=== PATIENT | male | born 1945 | race Caucasian/White ===

== ENCOUNTER → 2018-11-13 | Outpatient (CLI) | payer MEDICARE | END | disposition home or self-care (01) | LOC: LABWHC1 11:40 | PROVIDERS: ATTEND Urology | DX: R97.20 Elevated prostate specific antigen [PSA] (principal) | CPT/HCPCS: 36415; 84153 ==

== ENCOUNTER → 2019-11-15 | Outpatient (CLI) | payer MEDICARE | END | disposition home or self-care (01) | LOC: LABWHC1 13:29 | PROVIDERS: ATTEND Urology | DX: R97.20 Elevated prostate specific antigen [PSA] (principal) | CPT/HCPCS: 36415; 84153 ==

== ENCOUNTER 2020-06-13 14:42 | Emergency (ER) | payer MEDICARE ==
[2020-06-13 15:17] VITALS: TEMP 97.7
[2020-06-13 16:08] LABS: Appearance,Urine Clear (Clear); Bacteria,Urine Rare /hpf; Bilirubin,Urine Negative (Negative); Blood,Urine Negative (Negative); Color,Urine Yellow; Glucose,Urine (UA) Negative (Negative); Hyaline Casts,Urine 1 /lpf (0-2); Ketones,Urine 1+ (Negative); Leukocyte Esterase,Urine Negative (Negative); Mucus,Urine Many /hpf; Nitrite,Urine Negative (Negative); PH, Urine 5.5 (5.0-8.0); Protein,Urine 1+ (Negative); RBC,Urine 1 /hpf (0-5); Specific Gravity,Urine 1.031 (1.001-1.035); Squamous Epithelial Cell,Urine <1 /hpf (0-4); Urobilinogen,Urine <2.0 mg/dL (<2.0); WBC,Urine 1 /hpf (0-5)
[2020-06-13 16:18] LABS: Albumin 4.4 g/dL (3.5-5.0); HCT 50.3 % (39.0-53.0); HGB 16.9 gm/dL (13.0-17.5); MCH 29.7 pg (25.0-35.0); MCHC 33.6 g/dL (31.0-37.0); MCV 88.6 fL (80.0-100.0); Mean Platelet Volume 7.9; Platelet Count 244 k/uL (150-450); Potassium 3.4 mmol/L (3.5-5.1); RBC 5.67 m/uL (4.30-5.90); RDW 12.9 % (11.5-15.5); Total Bilirubin 1.3 mg/dL (0.2-1.3); Total Protein 7.4 g/dL (6.3-8.2); WBC 10.7 k/uL (3.8-10.6)
[2020-06-13 16:57] LABS: Band Neutrophils % 14 %; Eosinophils # (M) 0.21 k/uL (0-0.7); Lymphocytes # (M) 0.75 k/uL (1.0-4.8); Metamyelocytes # (M) 0.21 k/uL (0); Metamyelocytes % 2 %; Monocytes # (M) 1.28 k/uL (0-1.0); Neutrophils % (M) 65 %; Nucleated Red Blood Cells 0 /100 WBC (0-0); Total Cells Counted 200
[2020-06-13] MEDS ORDERED: SODIUM CHLORIDE 0.9% 500 ML 500 ML IV ONE (18:09)
--- NOTE | 2020-06-13 18:10 | ED ---
General Adult HPI - General Chief complaint: Abdominal Pain Stated complaint: N/V/D Time Seen by Provider: 06/13/20 18:00 Source: patient, RN notes reviewed, old records reviewed Mode of arrival: ambulatory Limitations: no limitations - History of Present Illness Initial comments: 74-year-old male presenting for evaluation of abdominal pain nausea vomiting and diarrhea. Symptoms have been present for the past 4 days. Patient denies fever but states he's had some chills. His main complaint is vomiting which seems to be given with abdominal pain which is lower abdomen and does progress into the chest prior to vomiting. Symptoms have been ongoing for the past 5 days. He's had several episodes of diarrhea as well. No central radiating chest pain. No history of CAD. He has had both coronavirus vaccines. - Related Data Home Medications Medication Instructions Recorded Confirmed Finasteride [Proscar] 5 mg PO DAILY 06/13/20 06/13/20 Loratadine [Claritin] 10 mg PO DAILY 06/13/20 06/13/20 Ondansetron HCl [Zofran] 4 mg PO BID PRN 06/13/20 06/13/20 Tamsulosin HCl [Flomax] 0.4 mg PO BID 06/13/20 06/13/20 Allergies Allergy/AdvReac Type Severity Reaction Status Date / Time No Known Allergies Allergy Verified 06/13/20 20:02 Review of Systems ROS Statement: Those systems with pertinent positive or pertinent negative responses have been documented in the HPI. ROS Other: All systems not noted in ROS Statement are negative. Past Medical History Past Medical History: Prostate Disorder History of Any Multi-Drug Resistant Organisms: None Reported Past Surgical History: Orthopedic Surgery, Tonsillectomy Additional Past Surgical History / Comment(s): arthroscopic lt knee, nasal frausto rgery Past Anesthesia/Blood Transfusion Reactions: No Reported Reaction Smoking Status: Light tobacco smoker Past Alcohol Use History: Occasional Past Drug Use History: None Reported - Past Family History Mother Family Medical History: No Reported History General Exam Limitations: no limitations General appearance: alert, in no apparent distress Head exam: Present: atraumatic, normocephalic Eye exam: Present: normal appearance ENT exam: Present: mucous membranes dry Neck exam: Present: normal inspection. Absent: tenderness, meningismus Respiratory exam: Present: normal lung sounds bilaterally. Absent: respiratory distress, wheezes, rales Cardiovascular Exam: Present: regular rate, normal rhythm GI/Abdominal exam: Present: soft. Absent: distended, tenderness, guarding, rebound Extremities exam: Present: normal inspection, normal capillary refill. Absent: pedal edema Neurological exam: Present: alert, oriented X3, CN II-XII intact. Absent: motor sensory deficit Psychiatric exam: Present: normal affect, normal mood Skin exam: Present: warm, dry, intact. Absent: cyanosis, diaphoretic Course Vital Signs 06/13/20 06/13/20 15:14 18:53 Temperature 97.7 F Pulse Rate 62 94 Respiratory 20 16 Rate Blood Pressure 119/71 123/81 O2 Sat by Pulse 94 L 96 Oximetry EKG Findings - EKG Comments: EKG Findings:: EKG: Normal sinus rhythm, nonspecific intraventricular block, rate of 88, no ST segment elevation, GA interval 162, QRS duration 138, QTC 476, no old for comparison. Medical Decision Making - Medical Decision Making 74-year-old male with crampy abdominal pain, vomiting and diarrhea. No vomiting today, he had an episode of diarrhea this morning. Workup is initiated, shows a mild leukocytosis 10.7. He has elevated hemoglobin likely secondary to dehydration. He has some minor electrolyte abnormalities likely again secondary to dehydration. No acute kidney injury or renal failure. His urinalysis is positive for 1+ ketones. No other acute findings. CT showing air-fluid levels throughout both the small and large intestine consistent with either ileus versus enteritis, given this history it is more consistent with an enteritis. Patient given some IV hydration. Feeling better on reevaluation. He will follow with his primary care physician. Return parameters are discussed. He will maintain oral hydration. Additionally he did have a abnormal EKG and troponins were ordered which were negative. He will inform his primary care physician of this. No active chest pain. - Lab Data Result diagrams: 06/13/20 15:54 06/13/20 15:54 Lab Results 06/13/20 06/13/20 06/13/20 Range/Units 15:41 15:50 15:54 WBC 10.7 H (3.8-10.6) k/uL RBC 5.67 (4.30-5.90) m/uL Hgb 16.9 (13.0-17.5) gm/dL Hct 50.3 (39.0-53.0) % MCV 88.6 (80.0-100.0) fL MCH 29.7 (25.0-35.0) pg MCHC 33.6 (31.0-37.0) g/dL RDW 12.9 (11.5-15.5) % Plt Count 244 (150-450) k/uL MPV 7.9 Neutrophils % (Manual) 65 % Band Neuts % (Manual) 14 % Lymphocytes % (Manual) 7 % Monocytes % (Manual) 12 % Eosinophils % (Manual) 2 % Metamyelocytes % 2 % Neutrophils # (Manual) 8.40 H (1.3-7.7) k/uL Lymphocytes # (Manual) 0.75 L (1.0-4.8) k/uL Monocytes # (Manual) 1.28 H (0-1.0) k/uL Eosinophils # (Manual) 0.21 (0-0.7) k/uL Metamyelocytes # (Man) 0.21 H (0) k/uL Nucleated RBCs 0 (0-0) /100 WBC Manual Slide Review Performed Sodium (137-145) mmol/L Potassium (3.5-5.1) mmol/L Chloride (98-107) mmol/L Carbon Dioxide (22-30) mmol/L Anion Gap mmol/L BUN (9-20) mg/dL Creatinine (0.66-1.25) mg/dL Est GFR (CKD-EPI)AfAm (>60 ml/min/1.73 sqM) Est GFR (CKD-EPI)NonAf (>60 ml/min/1.73 sqM) Glucose (74-99) mg/dL Calcium (8.4-10.2) mg/dL Total Bilirubin (0.2-1.3) mg/dL AST (17-59) U/L ALT (4-49) U/L Alkaline Phosphatase (38-126) U/L Troponin I <0.012 (0.000-0.034) ng/mL Total Protein (6.3-8.2) g/dL Albumin (3.5-5.0) g/dL Amylase (30-110) U/L Lipase (23-300) U/L Urine Color Yellow Urine Appearance Clear (Clear) Urine pH 5.5 (5.0-8.0) Ur Specific [place] 1.031 (1.001-1.035) Urine Protein 1+ H (Negative) Urine Glucose (UA) Negative (Negative) Urine Ketones 1+ H (Negative) Urine Blood Negative (Negative) Urine Nitrite Negative (Negative) Urine Bilirubin Negative (Negative) Urine Urobilinogen <2.0 (<2.0) mg/dL Ur Leukocyte Esterase Negative (Negative) Urine RBC 1 (0-5) /hpf Urine WBC 1 (0-5) /hpf Ur Squamous Epith Cells <1 (0-4) /hpf Urine Bacteria Rare H (None) /hpf Hyaline Casts 1 (0-2) /lpf Urine Mucus Many H (None) /hpf Coronavirus (PCR) (Not Detectd) 06/13/20 06/13/20 06/13/20 Range/Units 15:54 18:50 18:50 WBC (3.8-10.6) k/uL RBC (4.30-5.90) m/uL Hgb (13.0-17.5) gm/dL Hct (39.0-53.0) % MCV (80.0-100.0) fL MCH (25.0-35.0) pg MCHC (31.0-37.0) g/dL RDW (11.5-15.5) % Plt Count (150-450) k/uL MPV Neutrophils % (Manual) % Band Neuts % (Manual) % Lymphocytes % (Manual) % Monocytes % (Manual) % Eosinophils % (Manual) % Metamyelocytes % % Neutrophils # (Manual) (1.3-7.7) k/uL Lymphocytes # (Manual) (1.0-4.8) k/uL Monocytes # (Manual) (0-1.0) k/uL Eosinophils # (Manual) (0-0.7) k/uL Metamyelocytes # (Man) (0) k/uL Nucleated RBCs (0-0) /100 WBC Manual Slide Review Sodium 135 L (137-145) mmol/L Potassium 3.4 L (3.5-5.1) mmol/L Chloride 95 L (98-107) mmol/L Carbon Dioxide 26 (22-30) mmol/L Anion Gap 14 mmol/L BUN 22 H (9-20) mg/dL Creatinine 0.98 (0.66-1.25) mg/dL Est GFR (CKD-EPI)AfAm 88 (>60 ml/min/1.73 sqM) Est GFR (CKD-EPI)NonAf 76 (>60 ml/min/1.73 sqM) Glucose 128 H (74-99) mg/dL Calcium 9.0 (8.4-10.2) mg/dL Total Bilirubin 1.3 (0.2-1.3) mg/dL AST 28 (17-59) U/L ALT 40 (4-49) U/L Alkaline Phosphatase 82 (38-126) U/L Troponin I <0.012 (0.000-0.034) ng/mL Total Protein 7.4 (6.3-8.2) g/dL Albumin 4.4 (3.5-5.0) g/dL Amylase 37 (30-110) U/L Lipase 61 (23-300) U/L Urine Color Urine Appearance (Clear) Urine pH (5.0-8.0) Ur Specific [place] (1.001-1.035) Urine Protein (Negative) Urine Glucose (UA) (Negative) Urine Ketones (Negative) Urine Blood (Negative) Urine Nitrite (Negative) Urine Bilirubin (Negative) Urine Urobilinogen (<2.0) mg/dL Ur Leukocyte Esterase (Negative) Urine RBC (0-5) /hpf Urine WBC (0-5) /hpf Ur Squamous Epith Cells (0-4) /hpf Urine Bacteria (None) /hpf Hyaline Casts (0-2) /lpf Urine Mucus (None) /hpf Coronavirus (PCR) Not Detected (Not Detectd) Disposition Clinical Impression: Abdominal pain, Nausea vomiting and diarrhea Disposition: HOME SELF-CARE Condition: Good Instructions (If sedation given, give patient instructions): Abdominal Pain (ED), Acute Nausea and Vomiting (ED) Is patient prescribed a controlled substance at d/c from ED?: No Referrals: Allen Hebert MD [Primary Care Provider] - 1-2 days Time of Disposition: 21:24
--- NOTE | 2020-06-13 19:33 | XR ---
EXAMINATION TYPE: XR chest 1V portable DATE OF EXAM: 06/13/2020 COMPARISON: NONE HISTORY: Abdominal pain TECHNIQUE: Single view FINDINGS: There is no heart failure nor confluent pneumonic infiltrate. Costophrenic angles are clear . There is small linear density left lung base. There are no hilar masses. Bony thorax is intact. IMPRESSION: Subsegmental atelectasis left lung base. Normal heart.
--- NOTE | 2020-06-13 19:41 | CT ---
EXAMINATION TYPE: CT abdomen pelvis w con DATE OF EXAM: 06/13/2020 COMPARISON: None HISTORY: Generalized abdominal pain and diarrhea. CT DLP: 1555.4 mGycm Automated exposure control for dose reduction was used. CONTRAST: Performed with IV Contrast, patient injected with 100ml mL of Isovue 300. There is mild linear density at the posterior lung bases consistent with subsegmental atelectasis. He art size is normal. There is no pericardial effusion. There is no pleural effusion. Liver spleen stom ach pancreas appear intact. The bile ducts are not dilated. There is dilated gallbladder that measure s 5.4 cm. The kidneys have normal size. There is no hydronephrosis. There is normal excretion on the delayed im ages. There is bilateral renal parapelvic cysts. There are bilateral renal cortical cysts that measur e up to 5.3 cm. There is no retroperitoneal adenopathy. Ureters are not dilated. Bladder distends smo othly. There is no inguinal hernia. There is no pelvic mass. There are multiple dilated proximal small bowel loops with fluid levels. Small bowel measures up to 4 cm. There are fluid levels in the large bowel down to the rectum. Transition point not identified. T he distal small bowel has normal size. Distal small bowel mostly empty. There are a few sigmoid diver ticula. I see no sign of diverticulitis. There is no mesenteric edema. There is no ascites or free ai r. The lumbar vertebra have normal alignment. Disc spaces are fairly normal. There is no compression fra cture. Facet joints are intact. Bony pelvis is intact. IMPRESSION: Dilated proximal small bowel with fluid levels. No transition point seen. This is more likely related to significant small bowel ileus. Large bowel fluid levels extending to the rectum and also consistent with large bowel ileus. There is some mild colonic diverticulosis without diverticulitis. Dilated gallbladder. Acute cholecystitis is possible.
[2020-06-13 21:37] VITALS: BP 129/65; PULSE 81; RESP 18
== END 2020-06-13 21:44 | disposition home or self-care (01) ==
LOC: EC 14:42
DX: R10.30 Lower abdominal pain, unspecified (principal); R11.2 Nausea with vomiting, unspecified; R19.7 Diarrhea, unspecified; R68.83 Chills (without fever); F17.200 Nicotine dependence, unspecified, uncomplicated; Z20.822 Contact with and (suspected) exposure to COVID-19
CPT/HCPCS: 36415; 93005; 80053; 82150; 83690; 84484; 85025; 81001; 87635; 71045; 74177; 99285; Q9967

== ENCOUNTER → 2020-11-07 | Outpatient (CLI) | payer MEDICARE | END | disposition home or self-care (01) | LOC: LABWHC1 15:30 | PROVIDERS: ATTEND Urology | DX: R97.20 Elevated prostate specific antigen [PSA] (principal) | CPT/HCPCS: 36415; 84153 ==

== ENCOUNTER → 2021-08-08 | Outpatient (CLI) | payer MEDICARE ==
--- NOTE | 2021-08-08 11:23 | XR ---
EXAMINATION TYPE: XR lumbar spine 2 or 3V, XR Hip Bilateral and AP pelvis DATE OF EXAM: 08/08/2021 COMPARISON: CT dated 06/13/2020 INDICATION: Pain down both legs for 2 months. TECHNIQUE: 3 views of the lumbar spine and 5 views of the pelvis and both hips FINDINGS: Preserved lumbar lordosis. Minimal anterolisthesis of L4 over L5, likely degenerative. Mild retrolist hesis of L1 over L2. No definite vertebral body collapse of acute displaced fracture. Degenerative changes of the lower thoracic and lumbar spine with multilevel opposing endplate osteoph ytosis. Slight degenerated L5-S1 disc. Suspected neuroforaminal stenosis at L4-5 and L5-S1 levels. Bi lateral L4-5 and L5-S1 facet osteoarthropathy. Moderate right hip and milder left hip degenerative changes. 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 No definite pelvic bone or hip fracture identified. Left pelvic phleboliths. Arterial atherosclerotic calcifications. Degenerative changes of the inferior aspect of the left sacroiliac j oint. IMPRESSION: Degenerative changes as detailed above. Further MRI assessment can be considered if clinically requir ed.
== END | disposition home or self-care (01) ==
LOC: RADXRMAIN 10:27
PROVIDERS: ATTEND Internal Medicine
DX: M47.816 Spondylosis without myelopathy or radiculopathy, lumbar region (principal); M16.0 Bilateral primary osteoarthritis of hip
CPT/HCPCS: 72100; 73521

== ENCOUNTER → 2021-08-08 | Outpatient (CLI) | payer MEDICARE ==
--- NOTE | 2021-08-08 10:33 | US ---
EXAMINATION TYPE: US venous doppler duplex LE DATE OF EXAM: 08/08/2021 10:23 AM COMPARISON: NONE CLINICAL HISTORY: M79.606 Acute leg pain. Pain. No hx of DVT. Patient does not take blood thinners. SIDE PERFORMED: Bilateral TECHNIQUE: The lower extremity deep venous system is examined utilizing real time linear array sonog viraj with graded compression, doppler sonography and color-flow sonography. VESSELS IMAGED: Common Femoral Vein Deep Femoral Vein Greater Saphenous Vein * Femoral Vein Popliteal Vein Small Saphenous Vein * Proximal Calf Veins (* superficial vessels) Right Leg: No evidence of DVT in veins imaged at this time. Left Leg: No evidence of DVT in veins imaged at this time. IMPRESSION: No evidence of DVT at this time.
== END | disposition home or self-care (01) ==
LOC: RADUSWWP 09:58
PROVIDERS: ATTEND Internal Medicine
DX: M79.606 Pain in leg, unspecified (principal)
CPT/HCPCS: 93970

== ENCOUNTER → 2021-11-13 | Outpatient (CLI) | payer MEDICARE | END | disposition home or self-care (01) | LOC: LABWHC1 13:13 | PROVIDERS: ATTEND Urology | DX: R97.20 Elevated prostate specific antigen [PSA] (principal) | CPT/HCPCS: 36415; 84153 ==

== ENCOUNTER → 2021-12-24 | Outpatient (CLI) | payer MEDICARE ==
[2021-12-24 14:55] LABS: Basophils # (A) 0.07 X 10*3/uL (0.00-0.10); Basophils % (A) 0.9 %; Eosinophils # (A) 0.33 X 10*3/uL (0.04-0.35); HCT 46.8 % (39.6-50.0); HGB 15.6 g/dL (13.0-17.0); Immature Grans, Automated 0.4 %; Lymphocytes # (A) 2.98 X 10*3/uL (0.90-5.00); Lymphocytes % (A) 36.3 %; MCH 30.3 pg (27.0-32.0); MCHC 33.3 g/dL (32.0-37.0); MCV 90.9 fL (80.0-97.0); Mean Platelet Volume 10.3 fL (9.5-12.2); Monocytes # (A) 0.62 X 10*3/uL (0.20-1.00); Monocytes % (A) 7.6 %; NRBC Per 100 WBC 0 /100 WBCS (0.0-0.0); Neutrophils # (A) 4.18 X 10*3/uL (1.80-7.70); Neutrophils % (A) 50.8 %; Platelet Count 293 X 10*3/uL (140-440); RBC 5.15 X 10*6/uL (4.40-5.60); RDW 12.6 % (11.5-14.5); WBC 8.21 X 10*3/uL (4.50-10.00)
[2021-12-24 15:25] LABS: ALT 20 U/L (10-49); AST 20 U/L (14-35); African American GFR (CKD) 88.3 (60.0-200.0); Albumin 4.5 g/dL (3.8-4.9); Albumin/Globulin Ratio 1.56 (1.60-3.17); Alkaline Phosphatase 86 U/L (41-126); BUN/Creat Ratio 11.21 Ratio (12.00-20.00); Blood Urea Nitrogen 10.8 mg/dL (9.0-27.0); Calcium 9.3 mg/dL (8.7-10.3); Carbon Dioxide 25.5 mmol/L (20.0-27.5); Chloride 106 mmol/L (96-109); Chol/HDL Ratio 3.79 Ratio; Globulin 2.9 g/dL (1.6-3.3); Glucose 108 mg/dL (70-110); LDL Cholesterol,Calculated 123.6 mg/dL (0.0-131.0); Non-African American GFR(CKD) 76.2 (60.0-200.0); Potassium 4.5 mmol/L (3.5-5.5); Sodium 141 mmol/L (135-145); Total Protein 7.3 g/dL (6.2-8.2)
== END | disposition home or self-care (01) ==
LOC: LABWHC1 10:02
PROVIDERS: ATTEND Internal Medicine
DX: E78.5 Hyperlipidemia, unspecified (principal)
CPT/HCPCS: 36415; 80053; 80061; 84443; 85025

== ENCOUNTER → 2022-11-11 | Outpatient (CLI) | payer MEDICARE | END | disposition home or self-care (01) | LOC: LABWHC1 12:03 | PROVIDERS: ATTEND Urology | DX: R97.20 Elevated prostate specific antigen [PSA] (principal) | CPT/HCPCS: 36415; 84153 ==

== ENCOUNTER 2023-03-18 09:39 | Day surgery (SDC) | payer MEDICARE ==
[~2023-03-18 09:39] MED LIST: LACTATED RINGERS 1,000 ML IV SCH
[2023-03-18 11:03] VITALS: TEMP 98
[2023-03-18] MEDS ORDERED: PROPOFOL 10 MG/ML 20 ML VIAL IV ONE (11:44)
--- NOTE | 2023-03-18 12:08 | P.PCN ---
Date of Procedure: 03/18/23 Procedure(s) Performed: BRIEF HISTORY: Patient is a 77-year-old pleasant white male scheduled for an elective colonoscopy as a part of evaluation of prior history of colon polyps PROCEDURE PERFORMED: Colonoscopy snare polypectomy. PREOPERATIVE DIAGNOSIS: historyof colon polyps. IV sedation per Anesthesia. PROCEDURE: After informed consent was obtained, the patient, was brought into the endoscopy unit. IV sedation was administered by Anesthesia under continuous monitoring. Digital rectal examination was normal. Initially the Olympus CF-160 flexible video colonoscope was then inserted in the rectum, gradually advanced into the cecum without any difficulty. Careful examination was performed as the scope was gradually being withdrawn. Ileocecal valve and the appendiceal orifice were visualized and appeared normal. Prep was fair.. Mucosa of the cecum normal. In the ascending colon there were 2 polyps measuring 1 cm and 1.5 cm in size both of which were removed by snare polypectomy. Rest of the, ascending colon, transverse colon, descending colon, sigmoid colon, and rectum appeared no rmal. Scattered sigmoid diverticulosis. Retroflexion was performed in the rectum and no lesions were seen. The patient tolerated the procedure well. IMPRESSION: 1 cm and 1.5 cm ascending colon polyp status post polypectomy Scattered sigmoid diverticulosis RECOMMENDATIONS: Findings of this examination were discussed with the patient well as his family. He was advised to follow with the biopsy results. If the biopsy result adenoma he can have a repeat colonoscopy in 3 years..
[2023-03-18 12:15] VITALS: RESP 16
[2023-03-18 13:01] VITALS: BP 101/64; PULSE 64
== END 2023-03-18 13:11 | disposition home or self-care (01) ==
LOC: ORWHC2ENDO 09:39
PROVIDERS: ATTEND Internal Medicine Gastroenterology
DX: Z12.11 Encounter for screening for malignant neoplasm of colon (principal); D12.0 Benign neoplasm of cecum; K57.30 Diverticulosis of large intestine without perforation or abscess without bleeding; E78.5 Hyperlipidemia, unspecified; I25.2 Old myocardial infarction; M19.90 Unspecified osteoarthritis, unspecified site; N42.9 Disorder of prostate, unspecified; Z98.890 Other specified postprocedural states; Z79.899 Other long term (current) drug therapy; Z86.010 Personal history of colon polyps
CPT/HCPCS: 88305; 45385; J2704

== ENCOUNTER → 2023-06-19 | Outpatient (CLI) | payer MEDICARE ==
[~2023-06-19] MED LIST changes: -LACTATED RINGERS 1,000 ML IV SCH; +REGADENOSON 0.4 MG/5 ML SYRINGE IV PRN
--- NOTE | 2023-06-19 12:11 | CA ---
Lexiscan Nuclear Stress Test Report Name: Devante Shipman Exam Date: 06/19/2023 10:04 Exam Location: [facility] Stress Ht (in): 71 Wt (lb): 224 BSA: 2.21 Ordering Phys: Norberto Ball DO Referring Phys: NORBERTO BALL Technologist: KATHLEEN PEREIRA Age: 77 Gender: M : 1945 Procedure CPT: Indications: I44.7 LEFT BUNDLE-BRANCH BLOCK, UNSPECIFIED ICD-10 Codes: Patient History: CHOL, FAMILY HX, TOB Medications: SEE LIST Meds past 24 hrs: Pretest Chest Pain: STRESS TEST Lexiscan Protocol Exercise Duration (min:sec): 01:[address] Depressions (mm): Angina Score: Dalton Score: Resting HR (bpm): 66 Peak HR (bpm): 96 Resting BP (mmHg): 140 / 78 Peak BP (mmHg): 135 / 81 MPHR: 143 Target HR: 122 % MPHR: 67 METS: 1.0 Total Dose: Peak Dose: Atropine: Double Product: 15360 BP Response: Stress Termination: END OF DOSE Stress Symptoms: No chest pain or symptoms Stress Summary: ECG ANALYSIS Resting ECG: Normal sinus rhythm with left bundle branch block Stress ECG: Patient was given intravenous Lexiscan as a protocol did not have chest pain and EKG changes are inconclusive CONCLUSIONS Inconclusive EKG part of the stress test due to left bundle branch block Cardial lead portion of the stress test will be reported separately Dr. Chong Andrea MD (Electronically Signed) Final Date: 19 June 2023 12:10
--- NOTE | 2023-06-20 15:21 | NM ---
EXAMINATION TYPE: NM stress lexiscan cardiolite DATE OF EXAM: 06/19/2023 COMPARISON: NONE HISTORY: Left bundle branch block TECHNIQUE: After the intravenous administration of 9.8 mCi Tc 99m Sestamibi - Cardiolite resting SPE CT images acquired 45 minutes post injection. At peak stress 25.4 mCi Tc 99m Sestamibi - Stress images obtained 34 minutes post injection The patient was stressed with 0.4mg Lexiscan. FINDINGS: There is a large defect of the inferior wall on both rest and stress images. Prior infarct be conside red. This has extension into the septal wall and inferior lateral wall within the midportion. Polar maps correlate with the defect. Ejection fraction remains normal at 59%. Wall motion is symmetr ical. IMPRESSION: 1. Large fixed defect along the inferior wall with extension into the inferior septal wall and inferi or lateral wall may be a large prior infarct.
== END | disposition home or self-care (01) ==
LOC: RADNMMAIN 08:33
PROVIDERS: ATTEND Internal Medicine
DX: I44.7 Left bundle-branch block, unspecified (principal); E78.00 Pure hypercholesterolemia, unspecified
CPT/HCPCS: 93017; 78452; A9500; J2785

== ENCOUNTER → 2023-07-04 | Outpatient (CLI) | payer MEDICARE ==
[2023-07-04 14:27] LABS: HCT 48.6 % (39.6-50.0); HGB 16.1 g/dL (13.0-17.0); MCH 29.5 pg (27.0-32.0); MCHC 33.1 g/dL (32.0-37.0); Mean Platelet Volume 10.3 FL (9.5-12.2); NRBC Per 100 WBC 0 X 10*3/uL (0.00-0.01); Platelet Count 277 X 10*3/uL (140-440); RBC 5.46 X 10*6/uL (4.40-5.60); RDW 12.9 % (11.5-14.5); WBC 8.32 X 10*3/uL (4.50-10.00)
[2023-07-04 15:55] LABS: Blood Urea Nitrogen 13.4 mg/dL (9.0-27.0); Carbon Dioxide 24.3 mmol/L (21.6-31.8); Chloride 102 mmol/L (96-109); Potassium 4.6 mmol/L (3.5-5.5); Sodium 140 mmol/L (135-145)
== END | disposition home or self-care (01) ==
LOC: LABPAT 11:49
PROVIDERS: ATTEND Internal Medicine Interventional Cardiology
DX: Z01.812 Encounter for preprocedural laboratory examination (principal); R94.39 Abnormal result of other cardiovascular function study
CPT/HCPCS: 80051; 82565; 84520; 85027

== ENCOUNTER 2023-07-08 06:11 | Day surgery (SDC) | payer MEDICARE ==
[~2023-07-08 06:11] MED LIST changes: +ALPRAZolam 0.25 MG TAB PO PRN; +ALPRAZolam 0.5 MG TAB PO PRN; +ASPIRIN 325 MG TAB PO STA; +HEPARIN SODIUM,PORCINE (1 ML) 2,500 UNIT in SODIUM CHLORIDE 0.9% 250 ML IRRIGATION PRN; +HEPARIN SODIUM,PORCINE 10,000 UNIT in SODIUM CHLORIDE 0.9% 1,000 ML IRRIGATION PRN; +NITROGLYCERIN SL TABS 0.4 MG TAB SUBLINGUAL PRN; -REGADENOSON 0.4 MG/5 ML SYRINGE IV PRN
[2023-07-08] MEDS: SODIUM CHLORIDE 0.9% 1,000 ML in EMPTY BAG 1 BAG IV SCH (06:54)
[2023-07-08] MEDS ORDERED: HEPARIN SODIUM 1,000 UN/ML (10ML VL) ONE (07:13)
[2023-07-08] MEDS ORDERED: fentaNYL (PF) 50 MCG/ML 2 ML AMP ONE (07:13)
[2023-07-08] MEDS ORDERED: LIDOCAINE 1% INJ 10MG/ML (20 ML MDV) ONE (07:14)
[2023-07-08] MEDS ORDERED: VERAPAMIL 2.5 MG/ML 2 ML AMP ONE (07:14)
[2023-07-08 07:23] VITALS: RESP 18; TEMP 98
[2023-07-08] MEDS: LIDOCAINE 2% (PF) 20 MG/ML 5 ML VIAL SQ ONE (07:49)
[2023-07-08] MEDS: fentaNYL (PF) 50 MCG/1 ML VIAL IVP ONE (07:49)
[2023-07-08] MEDS: HEPARIN SODIUM 1,000 UN/ML (10ML VL) IVP ONE (07:55)
[2023-07-08] MEDS: IOPAMIDOL-370 100ML BTL INTRATHECA ONE (08:05)
[2023-07-08] MEDS ORDERED: RX INFO: IV CONTRAST WAS GIVEN 1 EACH MISC MISCELLANE PRN (08:17)
--- NOTE | 2023-07-08 08:22 | P.CARDCATH ---
Date of Procedure: 07/08/23 Description of Procedure: Cardiac Catheterization: The patient is a 77-year-old male with a known history of hyperlipidemia, was found to have a left bundle branch block. He is scheduled to undergo orthopedic surgery and had an abnormal MPI. Recommendations were made regarding cardiac catheterization, the risks and the complications were discussed with the patient who is in full understanding and agreement. Procedure Description: Patient was brought to can labeler in fasting semi-sedated state after receiving Fentanyl and Benadryl achieiving moderate conscious sedated state. Using Xylocaine Anesthesia and modified Seldinger technique, a 6-[place] sheath was introduced in the right radial artery . Subsequently, selective coronary angiography was performed using a 5-[place] 3.5 bend Tristan catheter. Multiple views of the coronary artery including hemiaxial views were obtained. The 5 [place] pigtail catheter was used to cross the aortic valve and LVEDP was calculated. Following that, catheter and sheath were removed. Hemostasis was obtained with deployment of vascular band . There was no immediate complication. Patient was returned to room in stable condition. Of note, the patient received a total of 5000 units of intravenous heparin as well as intra-arterial verapamil. Findings: Fluoroscopy: Significant calcification of the LAD and to a lesser degree the RCA was noted. Left main: This is a large size vessel, bifurcating into LAD and left circumflex, left main has no obstructive disease LAD: This is a heavily calcified vessel, giving rise to a large diagonal branch in the midsegment. The LAD in the midsegment has 10 to 20% plaque there is a 20% plaque at the takeoff of the diagonal branch, the rest of the vessel has no high-grade stenosis Left circumflex: This is a large nondominant vessel giving rise to 2 large obtuse marginal branch. The left circumflex has no evidence of high-grade stenosis RCA: This is a large dominant vessel, bifurcating distally to PDA and PLV. The mid right coronary artery has 10 to 20% plaque, the right PDA reaches to the inferoapical wall. The rest of the vessel has no high-grade stenosis. Left Ventriculogram: Not performed Hemodynamics: There was no gradient across aortic valve, LVEDP was 20 mmHg Conclusion: 1. Calcified coronary arteries 2. 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 Right dominance 4. Mildly elevated LVEDP Recommendations: I have recommended to continue medical therapy with the aggressive coronary risks modification initiated. The findings and the recommendations were discussed with the patient and the family and they were in full understanding and agreement. Duration of sedation is 14 minutes.
[2023-07-08] MEDS ORDERED: SODIUM CHLORIDE 0.9% 1,000 ML IV SCH (08:30)
[2023-07-08 12:11] VITALS: BP 113/61; PULSE 57
[2023-07-08] MEDS ORDERED: METOPROLOL TARTRATE 25 MG TAB PO SCH (21:00)
[2023-07-08] MEDS ORDERED: TAMSULOSIN 0.4 MG CAP.ER.24H PO SCH (21:00)
[2023-07-09] MEDS ORDERED: FINASTERIDE 5 MG TAB PO SCH (09:00)
[2023-07-09] MEDS ORDERED: ATORVASTATIN 20 MG TAB PO SCH (09:00)
[2023-07-09] MEDS ORDERED: ASPIRIN 81 MG PO SCH (09:00)
== END 2023-07-08 12:12 | disposition home or self-care (01) ==
LOC: CATHCVL 06:11
PROVIDERS: ATTEND Internal Medicine Interventional Cardiology
DX: I44.7 Left bundle-branch block, unspecified (principal); E78.5 Hyperlipidemia, unspecified; F17.210 Nicotine dependence, cigarettes, uncomplicated; Z79.899 Other long term (current) drug therapy
CPT/HCPCS: 93458; C1769 ×2; C1894; J1644; Q9967; J2001; J3010

== ENCOUNTER → 2023-08-01 | Outpatient (CLI) | payer MEDICARE ==
[2023-08-01 11:18] LABS: INR 0.9 (<1.2); Partial Thromboplastin Time 24.1 sec (22.0-30.0); Prothrombin Time 10.2 sec (10.0-12.5)
[2023-08-01 16:00] LABS: ALT 16 U/L (10-49); AST 20 U/L (14-35); Albumin 4.5 g/dL (3.8-4.9); Albumin/Globulin Ratio 1.88 Ratio (1.60-3.17); Alkaline Phosphatase 98 U/L (41-126); BUN/Creat Ratio 18.33 Ratio (12.00-20.00); Blood Urea Nitrogen 16.5 mg/dL (9.0-27.0); Calcium 9.4 mg/dL (8.7-10.3); Carbon Dioxide 22.2 mmol/L (21.6-31.8); Chloride 104 mmol/L (96-109); Globulin 2.4 g/dL (1.6-3.3); Glucose 126 mg/dL (70-110); Potassium 4.6 mmol/L (3.5-5.5); Sodium 139 mmol/L (135-145); Total Bilirubin 0.8 mg/dL (0.3-1.2); Total Protein 6.9 g/dL (6.2-8.2)
[2023-08-01 16:07] LABS: Basophils # (A) 0.08 X 10*3/uL (0.00-0.10); Eosinophils % (A) 3.8 %; HCT 51.4 % (39.6-50.0); HGB 16.6 g/dL (13.0-17.0); Lymphocytes # (A) 2.72 X 10*3/uL (0.90-5.00); Lymphocytes % (A) 34.5 %; MCH 29.5 pg (27.0-32.0); MCHC 32.3 g/dL (32.0-37.0); MCV 91.5 FL (80.0-97.0); Mean Platelet Volume 11.5 FL (9.5-12.2); Monocytes % (A) 7.6 %; NRBC Per 100 WBC 0 X 10*3/uL (0.00-0.01); Neutrophils # (A) 4.17 X 10*3/uL (1.80-7.70); Neutrophils % (A) 52.8 %; Platelet Count 189 X 10*3/uL (140-440); RBC 5.62 X 10*6/uL (4.40-5.60); RBC Morphology Normal (Normal); RDW 12.8 % (11.5-14.5); WBC 7.89 X 10*3/uL (4.50-10.00)
== END | disposition home or self-care (01) ==
LOC: LABPAT 10:29
PROVIDERS: ATTEND Orthopaedic Surgery
DX: Z01.818 Encounter for other preprocedural examination (principal); M16.11 Unilateral primary osteoarthritis, right hip; Z22.322 Carrier or suspected carrier of Methicillin resistant Staphylococcus aureus
CPT/HCPCS: 80053; 85025; 85610; 85730; 86850; 86900; 86901; 87070; 93005

== ENCOUNTER 2023-08-12 09:34 | Day surgery (SDC) | payer MEDICARE ==
[2023-08-07 09:22] VITALS: BMI 31.5
[~2023-08-12 09:34] MED LIST changes: -ALPRAZolam 0.25 MG TAB PO PRN; -ALPRAZolam 0.5 MG TAB PO PRN; -ASPIRIN 325 MG TAB PO STA; -HEPARIN SODIUM,PORCINE (1 ML) 2,500 UNIT in SODIUM CHLORIDE 0.9% 250 ML IRRIGATION PRN; -HEPARIN SODIUM,PORCINE 10,000 UNIT in SODIUM CHLORIDE 0.9% 1,000 ML IRRIGATION PRN; +HYDROcodone/APAP 7.5-325MG 1 EACH TAB PO PRN; +HYDROmorphone 0.5 MG/0.5 ML SYRINGE IVP PRN; +MAGNESIUM HYDROXIDE 2,400 MG/30 ML CUP PO PRN; +NALOXONE 0.4 MG/ML 1 ML VIAL IV PRN; -NITROGLYCERIN SL TABS 0.4 MG TAB SUBLINGUAL PRN; +ONDANSETRON 4 MG/2 ML VIAL IVP PRN; +TRANEXAMIC 1,000 MG/100ML-NACL 1,000 MG in SALINE 1 100ML.BAG IVPB PRN
[2023-08-12] MEDS: fentaNYL (PF) 50 MCG/ML 2 ML AMP IVP ONE (10:27)
[2023-08-12] MEDS: IV FLUID CONTINUATION 1,000 ML IV ONE (10:35)
[2023-08-12] MEDS: DEXAMETHASONE SOD PHOSPHATE 4 MG/ML 1 ML VIAL IV ONE (10:35)
[2023-08-12] MEDS: ONDANSETRON 4 MG/2 ML VIAL IVP ONE (10:35)
[2023-08-12] MEDS: MELOXICAM 7.5 MG TAB PO PRN (10:36)
[2023-08-12] MEDS: MIDAZOLAM 2 MG/2 ML VIAL IV PRN (10:37)
[2023-08-12] MEDS: GABAPENTIN 300 MG CAP PO PRN (10:37)
[2023-08-12] MEDS: ACETAMINOPHEN TAB 500 MG TAB PO PRN (10:37)
--- NOTE | 2023-08-12 10:50 | P.ANPRN ---
Procedure Note - Anesthesia - Nerve Block Performed Right Graham Single Time Out Performed: Yes Date of Procedure: 08/12/23 Procedure Start Time: 10:38 Procedure Stop Time: 10:44 Location of Patient: PreOp Indication: Acute Post-Operative Pain, Requested by Surgeon Sedation Type: Sedate with meaningful contact maintained Preparation: Sterile Prep Position: Supine Needle Types: Pajunk Needle Gauge: 21 Ultrasound used to visualize needle placement: Yes Ultrasound used to observe medication spread: Yes Injectate: 0.5% Ropivacaine (see comment for volume) (30 ml + 4 mg Dexametha sone) Blood Aspirated: No Pain Paresthesia on Injection Noted: No Resistance on Injection: Normal Image Stored and Saved: Yes Events: Uneventful and Well Tolerated
[2023-08-12] MEDS ORDERED: PROPOFOL 10 MG/ML 20 ML VIAL IV ONE (11:30)
[2023-08-12] MEDS ORDERED: ePHEDrine 50 MG/ML 1 ML VIAL ONE (11:30)
[2023-08-12] MEDS ORDERED: MIDAZOLAM 2 MG/2 ML VIAL ONE (11:30)
[2023-08-12] MEDS ORDERED: fentaNYL (PF) 50 MCG/ML 2 ML AMP ONE (11:30)
[2023-08-12] MEDS ORDERED: ROPIVACAINE 5 MG/ML 30 ML VIAL ONE (11:30)
[2023-08-12] MEDS ORDERED: PHENYLEPHRINE-0.9% NACL SYG 1,000 MCG/10 ML SYRINGE ONE (11:30)
[2023-08-12] MEDS ORDERED: DEXAMETHASONE SOD PHOSPHATE 4 MG/ML 1 ML VIAL ONE (11:30)
[2023-08-12] MEDS ORDERED: TRANEXAMIC 1,000 MG/100ML-NACL PREMIX BAG ONE (11:30)
[2023-08-12] MEDS: ceFAZolin 1,000 MG in SODIUM CHLORIDE 0.9% 1,000 ML IRRIGATION ONE (11:35)
[2023-08-12] MEDS: ROPIVACAINE 5 MG/ML 30 ML VIAL MISCELLANE ONE ×2 (11:48→12:40)
[2023-08-12] MEDS: LACTATED RINGERS 1,000 ML IV ONE (12:11)
--- NOTE | 2023-08-12 12:47 | P.OP ---
Date of Procedure: 08/12/23 Preoperative Diagnosis: Severe osteoarthritis right hip Postoperative Diagnosis: Severe osteoarthritis right hip Procedure(s) Performed: Right total hip arthroplasty with a direct anterior approach Implants: [employer] Polarstem standard size 4 with a collar [employer] R3, 3 hole hemispherical acetabular shell, 56 mm [employer] Reflection 6.5 mm cancellus screw, 20 mm, 25 mm [employer] R3, XLPE 20 acetabular liner [employer] Oxinium femoral head 36 mm, +8 All components were press-fit. The articulation is Oxinium on polyethylene. Anesthesia: spinal Surgeon: Clayton Dukes Chemical Sprayer #1: Nitza Whitfield Estimated Blood Loss (ml): 350 Pathology: none sent Condition: stable Disposition: PACU Indications for Procedure: After failure of conservative treatment we discussed the surgical and n onsurgical treatment options at length. Patient wishes to proceed with a total hip arthroplasty with a direct anterior approach. Complications specific to this procedure were discussed at length, including but not limited to infection, leg length discrepancy, dislocation, nerve injury, and fracture. Covid-19 was also discussed at length with the patient, and they are aware of the current policies and procedures. The patient was given the option of delaying surgery, but they elect to proceed knowing these risks. Patient is aware of all these complications and informed consent was obtained Operative Findings: The operative findings are consistent with severe osteoarthritis of the right hip Description of Procedure: The patient was seen and evaluated in the preoperative area and the consent was reviewed. The operative site was marked with a skin marker. The patient verified the procedure and operative site. A SARAH block was placed by anesthesia in the preoperative area. The patient was then brought to the operating room and given preoperative antibiotics intravenously. 1 g of Tranexamic acid was also given intravenously. A spinal anesthetic was administered by the anesthesia department. The patient was then placed on the [place] table with the bony prominences well-padded. The hip area was then prepped with a ChloraPrep solution and draped in the usual sterile fashion. A universal timeout was then performed, which confirmed the patient's name, surgical site, ALLERGIES, and procedure being performed on the consent. Next the incision site was located at 1 cm distal and 4 cm lateral to the anterior superior iliac spine. The skin and subcutaneous tissues were sharply incised. Incision was carefully dissected down to the fascia overlying the tensor fascia nickolas muscle. This fascia was then incised in line with the muscle fibers. Care was taken to stay laterally in order to avoid injuring the lateral femoral cutaneous nerve. Next, using blunt finger dissection, the tensor fascia nickolas muscle was dissected off its investing fascia. The muscle was then carefully retracted laterally with a cobra retractor over the lateral neck of the femur. Next, the circumflex vessels were identified and cauterized using the Aquamantis device. The anterior hip capsule was then exposed. The capsule was then opened and an inverted T fashion. The retractors were then placed intracapsularly. The retractors were maintained intracapsular throughout the procedure. The proximal femur was then visualized. Fluoroscopic x-rays were then taken in order to evaluate the preoperative leg lengths. A small amount of traction was placed on the leg. The femoral neck was then osteotomized at the appropriate level above the lesser trochanter. A small wedge of bone was then removed from the remaining femoral head. Next, using a corkscrew the femoral head was removed from the acetabulum. On gross visual inspection, the femoral head had complete loss of articular cartilage and multiple periarticular osteophytes. The femoral head was then measured. Attention was then turned to the acetabulum. The acetabulum was exposed and any remaining labrum was excised. Sequential reaming of the acetabulum was performed using fluoroscopic guidance until there was a good bed of bleeding cancellus bone. When the appropriate size was reached, a trial was then placed. The position and fit of the trial was checked with fluoroscopy. The trial was then removed. Then, using fluoroscopic guidance, the final implant was impacted at 20 of anteversion and 40 of abduction, and fully seated in the acetabulum. 2 screws were then placed in the acetabulum. Again fluoroscopy was used to check position of the screws. Next, the liner was then impacted, with a 20 elevated liner located in the anterior superior quadrant. Component locking was confirmed. Attention was then directed to the femur. With the aid of the [place] table, the femur was externally rotated to approximately 130, extended, and adducted under the opposite leg. A side hook was then placed under the proximal femur, and the side hook elevator was used to elevate the proximal femur while releasing the capsule. Retractors were then placed. A capsular release was performed, as well as a release of the conjoined tendon, which afforded excellent visualization of the proximal femur. Next, a box osteotome was used to lateralize the proximal femur. A hand method lasting machine operator was then used to locate the femoral canal. Sequential broaching was then performed with appropriate size which afforded excellent fixation in the proximal femur. A trial was then placed with appropriate head and neck, and the hip was gently reduced with the aid of the [place] table. Fluoroscopy was then used to check position of the components, as well as to evaluate the leg lengths and offset. The leg lengths and offset were measured as closely as possible to ensure stability of the hip. The hip was then gently dislocated and the trials were then removed. Final implants were then impacted and the hip was again reduced. Final fluoroscopic x-rays confirmed that the components were in anatomic position. The leg lengths and offset were measured and were found to coincide with the trial measurements. The hip was also taken through range of motion, and found to be stable. The hip was then copiously irrigated with antibiotic solution with pulsatile lavage. The hip was then irrigated with Irrisept solution. The soft tissues were then injected with a ropivacaine solution. A second dose of 1 g of Tranexamic acid was also given intravenously. The fascia was then closed with 2-0 strata fix suture. The subcutaneous tissue was closed with 3-0 Vicryl. The subcuticular tissue was closed with 3-0 strata fix suture. The skin was then closed with Exofin skin glue. After the glue and dried, and Optifoam silver impregnated dressing was applied. The patient was then transferred to the recovery room in stable condition. The architectural administrative assistant LUCERO Palmer was required due to the complexity of surgery, and the need for skilled surgical scrub technologist for positioning, draping, exposure, retraction, and closure of the wound.
--- NOTE | 2023-08-12 13:01 | XR ---
Intraoperative/procedural fluoroscopic services were provided for total right hip arthroplasty. Total fluoroscopy time is 58 seconds with a total of 3 submitted images to PACS. Total DAP 4.1647 Gycm2. Please see the operative note for further details.
[2023-08-12] MEDS: HYDROmorphone 0.5 MG/0.5 ML SYRINGE IVP PRN (16:23)
[2023-08-12] MEDS: SODIUM CHLORIDE 0.9% 1,000 ML IV SCH (16:39)
--- NOTE | 2023-08-12 17:53 | P.CONS ---
History of Present Illness - Reason for Consult Consult date: 08/12/23 - History of Present Illness Patient is a 77-year-old male with a past medical history of BPH, hyperlipidemia, coronary disease who presents to the hospital for elective right total hip arthroplasty. Medicine has been consulted for medical management. Patient was seen after his surgery. Patient currently denying any acute complaints. ROS: 10 ROS reviewed and are negative except as noted in HPI Physical exam General: [Alert and oriented, well nourished, no acute distress]. Eye: [PERRL, EOMI, normal conjunctiva]. HENT: [Normocephalic, clear tympanic membranes, normal hearing, moist oral mucosa, no scleral icterus, no sinus tenderness]. Neck: [Supple, non-tender, no carotid bruits, no JVD, no lymphadenopathy]. Lungs: [Clear to auscultation and percussion, non-labored respiration]. Heart: [Normal rate, regular rhythm, no murmur, gallop or edema]. Abdomen: [Soft, non-tender, non-distended, normal bowel sounds, no masses]. Musculoskeletal: [Restricted range of motion of the right lower extremity]. Skin: [Bandage on the right hip appears intact and dry]. Neurologic: [Awake, alert, and oriented X3, CN II-XII intact]. Psychiatric: [Cooperative, appropriate mood and affect]. Assessment and plan Coronary disease Patient currently on aspirin 325 mg p.o. twice daily for DVT prophylaxis Will hold off on metoprolol as heart rate is in the 50s Hyperlipidemia Atorvastatin 20 mg p.o. daily BPH Continue with finasteride 5 mg p.o. daily and tamsulosin 0.4 mg p.o. twice daily Right hip osteoarthritis Status post right hip total arthroplasty As per your orthopedic surgery management DVT prophylaxis: Aspirin 325 mg p.o. twice daily Thank you for the consult. Please do not hesitate to call us with any questions. Past Medical History Past Medical History: Hyperlipidemia, Hypertension, Osteoarthritis (OA), Prostate Disorder Additional Past Medical History / Comment(s): hx colon polyps History of Any Multi-Drug Resistant Organisms: None Reported Past Surgical History: Heart Catheterization, Orthopedic Surgery, Prostate Surgery, Tonsillectomy Additional Past Surgical History / Comment(s): arthroscopic lt knee, nasal surgery, colonoscopy, prostate biopsy Past Anesthesia/Blood Transfusion Reactions: Previous Problems w/ Anesthesia Additional Past Anesthesia/Blood Transfusion Reaction / Comm: after prostate biopsies had difficulty urinating & ended up w/catheter Past Psychological History: No Psychological Hx Reported Smoking Status: Former smoker Past Alcohol Use History: Rare Additional Past Alcohol Use History / Comment(s): smokes pipe, has for years- HASN'T SMOKED SINCE 08/04/23 Past Drug Use History: None Reported - Past Family History Mother Family Medical History: No Reported History Additional Family Medical History / Comment(s): angina Father Family Medical History: Diabetes Mellitus Additional Family Medical History / Comment(s): rt bka Brother(s) Family Medical History: Coronary Artery Disease (CAD) Additional Family Medical History / Comment(s): agent orange issues Medications and Allergies Home Medications Medication Instructions Recorded Confirmed Type Finasteride [Proscar] 5 mg PO DAILY 06/13/20 08/07/23 History Tamsulosin HCl [Flomax] 0.4 mg PO BID 06/13/20 08/07/23 History Atorvastatin [Lipitor] 20 mg PO DAILY 03/14/23 08/07/23 History Aspirin 81 mg PO DAILY 07/03/23 08/07/23 History Metoprolol Tartrate 25 mg PO BID 07/03/23 08/07/23 History Aspirin 325 mg PO BID #60 tab 08/12/23 Rx HYDROcodone/APAP 7.5-325MG [[place] 1 - 2 tab PO Q6H PRN #32 tab 08/12/23 Rx 7.5-325] Sennosides [Senokot] 2 tab PO DAILY PRN #60 tablet 08/12/23 Rx Allergies Allergy/AdvReac Type Severity Reaction Status Date / Time No Known Allergies Allergy Verified 08/07/23 09:03 Physical Exam Osteopathic Statement: *. No significant issues noted on an osteopathic structural exam other than those noted in the History and Physical/Consult. Vitals: Vital Signs Temp Pulse Pulse Resp BP BP Pulse Ox 08/12/23 16:04 59 L 16 124/68 94 L 08/12/23 15:35 53 L 16 117/62 94 L 08/12/23 15:01 72 16 105/62 94 L 08/12/23 14:30 72 16 111/63 94 L 08/12/23 14:15 56 L 16 105/58 94 L 08/12/23 14:00 71 16 106/56 93 L 08/12/23 13:45 66 16 106/55 93 L 08/12/23 13:30 62 16 119/57 96 08/12/23 13:15 72 16 96/60 93 L 08/12/23 13:06 97.2 F L 80 14 96/55 93 L 08/12/23 10:49 52 L 18 105/65 93 L 08/12/23 10:13 97.9 F 59 L 20 117/76 95 Intake and Output 08/12/23 08/12/23 08/12/23 06:59 14:59 22:59 Intake Total 1451 Output Total 350 Balance 1101 Intake: IV 1451 Output: Estimated Blood Loss 350 Other: Weight 100.6 kg 100.6 kg
--- NOTE | 2023-08-12 20:18 | XR ---
EXAMINATION TYPE: XR Hip Limited RT DATE OF EXAM: 08/12/2023 3:55 PM CLINICAL INDICATION:Male, 77 years old with history of Status post hip surgery, assess surgical align ment; [facility] COMPARISON: None. TECHNIQUE AND FINDINGS: Single frontal view of the right hip. A total hip arthroplasty is in place, appears intact and normal ly aligned. No abnormal perihardware lucency or fracture. No significant malalignment. There is a sat omaira-like object projected over the skin surface lateral to the hip, likely differential includes [employer] spring peas. Soft tissues show no unexpected radiopaque foreign body. Some regional soft tissue g as is present, not unexpected postoperative. IMPRESSION: Status post placement of right total hip arthroplasty. No evidence of complication.
[2023-08-12] MEDS: ASPIRIN 325 MG TAB PO SCH (20:59)
[2023-08-12] MEDS: SENNOSIDES-DOCUSATE SODIUM 1 EACH TAB PO SCH (20:59)
[2023-08-12] MEDS: HYDROcodone/APAP 7.5-325MG 1 EACH TAB PO PRN (21:11)
[2023-08-12] MEDS: TAMSULOSIN 0.4 MG CAP.ER.24H PO SCH (21:16)
[2023-08-13 08:10] VITALS: BP 122/71; PULSE 72; RESP 16; TEMP 97.7
[2023-08-13 08:46] LABS: Basophils # (A) 0.02 X 10*3/uL (0.00-0.10); Basophils % (A) 0.1 %; Eosinophils # (A) 0.01 X 10*3/uL (0.04-0.35); Eosinophils % (A) 0.1 %; HGB 14.2 g/dL (13.0-17.0); Lymphocytes # (A) 2.38 X 10*3/uL (0.90-5.00); Lymphocytes % (A) 16.6 %; MCH 29.7 pg (27.0-32.0); Mean Platelet Volume 10.8 FL (9.5-12.2); Monocytes # (A) 1.13 X 10*3/uL (0.20-1.00); Monocytes % (A) 7.9 %; NRBC Per 100 WBC 0 X 10*3/uL (0.00-0.01); Neutrophils # (A) 10.73 X 10*3/uL (1.80-7.70); Neutrophils % (A) 74.8 %; Platelet Count 246 X 10*3/uL (140-440); RBC 4.78 X 10*6/uL (4.40-5.60); RDW 12.8 % (11.5-14.5); WBC 14.34 X 10*3/uL (4.50-10.00)
[2023-08-13] MEDS: LACTATED RINGERS 1,000 ML IV SCH (08:57)
[2023-08-13] MEDS: METOPROLOL TARTRATE 25 MG TAB PO SCH (09:04)
[2023-08-13] MEDS: FINASTERIDE 5 MG TAB PO SCH (09:04)
[2023-08-13] MEDS: ATORVASTATIN 20 MG TAB PO SCH (09:04)
--- NOTE | 2023-08-13 10:32 | P.DS ---
Providers Expected date of discharge: 08/13/23 Attending physician: Clayton Dukes Consults: 08/12/23 09:04 Consult Physician Routine Consulting Provider: Clinton Millard Consult Reason/Comments: medical management Do you want consulting provider notified?: Yes Primary care physician: Norberto Schmidt - Discharge Diagnosis(es) (1) Osteoarthritis of right hip Current Visit: Yes Status: Acute (2) S/P total hip arthroplasty Current Visit: Yes Status: Acute Hospital Course: This is a 77-year-old male with known history of degenerative arthritis of the right hip. The patient presented for evaluation as an outpatient. After discussion and consideration patient elects to proceed with total hip arthroplasty. The patient is seen preoperatively by Dr. Dukes and medically cleared for surgery by their primary care physician. Patient is admitted to [facility] on 08/12/2023 for total hip arthroplasty. The procedure is performed without complication or sequelae. The patient is doing well postoperatively. Labs and vital signs are stable on day of discharge. On day of discharge patient's hip incision is healing well. There is minimal erythema. There is no drainage noted at this time. There is minimal soft tissue swelling to the hip and thigh. Patient has full foot and ankle motion without difficulty or pain. Calf is soft and nontender to palpation. Neurovascular status to the right lower extremity is intact. Patient is disc harged home in good condition. Please see med rec for accurate list of home medications. Plan - Discharge Summary Discharge Rx Participant: No New Discharge Prescriptions: New Aspirin 325 mg PO BID #60 tab HYDROcodone/APAP 7.5-325MG [[place] 7.5-325] 1 - 2 tab PO Q6H PRN #32 tab PRN Reason: Pain Sennosides [Senokot] 2 tab PO DAILY PRN #60 tablet PRN Reason: Constipation No Action Tamsulosin HCl [Flomax] 0.4 mg PO BID Atorvastatin [Lipitor] 20 mg PO DAILY Aspirin 81 mg PO DAILY Finasteride [Proscar] 5 mg PO DAILY Metoprolol Tartrate 25 mg PO BID Discharge Medication List Finasteride [Proscar] 5 mg PO DAILY 06/13/20 [History] Tamsulosin HCl [Flomax] 0.4 mg PO BID 06/13/20 [History] Atorvastatin [Lipitor] 20 mg PO DAILY 01/12/24 [History] Aspirin 81 mg PO DAILY 07/03/23 [History] Metoprolol Tartrate 25 mg PO BID 07/03/23 [History] Aspirin 325 mg PO BID #60 tab 08/12/23 [Rx] HYDROcodone/APAP 7.5-325MG [[place] 7.5-325] 1 - 2 tab PO Q6H PRN #32 tab 08/12/23 [Rx] Sennosides [Senokot] 2 tab PO DAILY PRN #60 tablet 08/12/23 [Rx] Follow up Appointment(s)/Referral(s): [facility] [NON-STAFF] - As Needed Clayton Dukes DO [Doctor of Osteopathic Medicine] - 2 Weeks Activity/Diet/Wound Care/Special Instructions: Weightbearing as tolerated with walker. Leave dressing intact. Dressing may be removed by home care nurse or by patient in 7 days. Then change dressing twice daily until follow up. May shower with initial dressing intact and after removal. If dressing become saturated, please remove. Please take aspirin 325mg twice daily for 30 days to prevent blood clots. Recommend use of compression stockings daily until follow up to help prevent swelling and blood clots. May remove at night before sleeping. Please follow-up with [facility] in 2 weeks and call with any questions or concerns, . Discharge Disposition: HOME WITH HOME HEALTH SERVICES
--- NOTE | 2023-08-13 11:17 | P.PN ---
Subjective Progress Note Date: 08/13/23 Patient seen this morning. He denies any acute complaints. Medication reconciliation done. Patient stable from a medical standpoint Objective - Vital Signs Vital signs: Vital Signs Temp 97.7 F 08/13/23 07:26 Pulse 72 08/13/23 07:26 Resp 16 08/13/23 07:26 BP 122/71 08/13/23 07:26 Pulse Ox 95 08/13/23 08:32 FiO2 Intake & Output 08/12/23 08/13/23 08/13/23 18:59 06:59 18:59 Intake Total 1990 Output Total 350 Balance 1641 Weight 100.6 kg Intake: IV 1451 Oral 540 Output: Estimated Blood Loss 350 Other: # Voids 1 - Labs CBC & Chem 7: 08/13/23 03:38 Labs: Abnormal Lab Results - Last 24 Hours (Table) 08/13/23 Range/Units 03:38 WBC 14.34 H (4.50-10.00) X 10*3/uL Immature Gran # 0.07 H (0.00-0.04) X 10*3/uL Neutrophils # 10.73 H (1.80-7.70) X 10*3/uL Monocytes # 1.13 H (0.20-1.00) X 10*3/uL Eosinophils # 0.01 L (0.04-0.35) X 10*3/uL
== END 2023-08-13 13:10 | disposition home health service (06) ==
LOC: OR 09:34 → 4SSUR 13:00 → OR 08-13 13:10
PROVIDERS: ATTEND Orthopaedic Surgery
DX: M16.11 Unilateral primary osteoarthritis, right hip (principal); G89.18 Other acute postprocedural pain; M17.11 Unilateral primary osteoarthritis, right knee; I25.10 Atherosclerotic heart disease of native coronary artery without angina pectoris; E78.5 Hyperlipidemia, unspecified; N40.0 Benign prostatic hyperplasia without lower urinary tract symptoms; I44.7 Left bundle-branch block, unspecified; I10 Essential (primary) hypertension; Z87.891 Personal history of nicotine dependence; Z79.899 Other long term (current) drug therapy; Z79.82 Long term (current) use of aspirin
CPT/HCPCS: 94760; 97161; 97166; 64447; 85025; 73501; 27130; C1776; S0138; J2250; J1100; J0690 ×3; J2405; J3010; J2795; J1170

== ENCOUNTER → 2023-11-21 | Outpatient (CLI) | payer MEDICARE ==
[2023-11-21 15:17] LABS: ALT 19 U/L (10-49); AST 17 U/L (14-35); Chol/HDL Ratio 2.27 Ratio; Prostate Specific Antigen 2.65 ng/mL (0.000-6.500)
== END | disposition home or self-care (01) ==
LOC: LABWHC1 09:44
PROVIDERS: ATTEND Internal Medicine Interventional Cardiology
DX: R97.20 Elevated prostate specific antigen [PSA]
CPT/HCPCS: 36415; 80061; 84153; 84450; 84460